=== PATIENT | male | born 1950 | race African-American/Black ===

== ENCOUNTER 2019-02-11 17:58 | Inpatient (IN) | payer MEDICARE, OTHER ==
[~2019-02-11] VITALS: Ht 185.4 cm; Wt 95.3 kg
--- NOTE | 2019-02-11 18:08 | NUR ---
PT MELA LUTHER FROM [facility] FOR GEROPSYCH ADMISSION. PER REPORT, AGITATED AND VERBALLY ABUSIVE TO STAFF. AWAITING MD CACERES.
--- NOTE | 2019-02-11 18:10 | NUR ---
DR NORTON AT BEDSIDE FOR EVAL.
--- NOTE | 2019-02-11 18:26 | NUR ---
POLYMERIZATION OVEN OPERATOR AT BEDSIDE FOR BLOOD DRAW.
[2019-02-11] MEDS ORDERED: BENA20TA78 PO (18:32)
[2019-02-11] MEDS ORDERED: QUET25TA PO (18:32)
[2019-02-11] MEDS ORDERED: FAMO20TA80 PO (18:32)
[2019-02-11] MEDS ORDERED: CARV6.25 PO (18:32)
[2019-02-11] MEDS ORDERED: AMLO5TAB4 PO (18:32)
[2019-02-11] MEDS ORDERED: LACT10SO PO (18:32)
[2019-02-11] MEDS ORDERED: ATOR10TA PO (18:32)
[2019-02-11] MEDS ORDERED: FERR325T23 PO (18:32)
[2019-02-11] MEDS ORDERED: CHOL100044 PO (18:32)
[2019-02-11] MEDS ORDERED: ASPI-1152 PO (18:32)
[2019-02-11] MEDS ORDERED: PARO10TA86 PO (18:32)
[2019-02-11] MEDS ORDERED: PERP2TAB PO ×2 (18:32)
[2019-02-11 18:49] LABS: BASOPHILS # (AUTO) 0.1 /CMM (0.0-0.2); EOSINOPHILS % (AUTO) 2.2 % (0.0-6.0); HEMATOCRIT 37 % (39-51); HEMOGLOBIN 12.2 g/dL (13.5-17.5); LYMPHOCYTES # (AUTO) 1.3 /CMM (0.8-4.8); LYMPHOCYTES % (AUTO) 38.3 % (20.0-44.0); MEAN CORPUSCULAR HGB CONC 33 g/dl (31.0-36.0); MEAN CORPUSCULAR VOLUME 92 fL (80-96); MONOCYTES # (AUTO) 0.4 /CMM (0.1-1.30); MONOCYTES % (AUTO) 10.8 % (2.0-12.0); NEUTROPHILS # (AUTO) 1.6 /CMM (1.8-8.9); NEUTROPHILS % (AUTO) 46.7 % (43.0-81.0); PLATELET COUNT (AUTO) 208 /CMM (150-450); RED BLOOD CELL COUNT(AUTO) 4.03 MIL/uL (4.5-6.0); WHITE BLOOD COUNT (AUTO) 3.5 K/uL (4.3-11.0)
[2019-02-11 19:00] LABS: CALCIUM, SERUM 9.2 mg/dL (8.5-10.1); CARBON DIOXIDE 28 mmol/L (21-32); CHLORIDE 106 mmol/L (98-107); CREATININE 1.1 mg/dL (0.6-1.3); GLUCOSE 98 mg/dL (74-106); POTASSIUM 3.5 mmol/L (3.5-5.1); SODIUM SERUM 143 mmol/L (136-145); UREA NITROGEN, BLOOD 11 mg/dL (7-18)
[2019-02-11 19:13] LABS: ACETAMINOPHEN < 10 ug/ml (10-30); ALANINE AMINOTRANSFERASE 14 U/L (12-78); ALCOHOL, BLOOD < 3 mg/dL (0-0); ALKALINE PHOSPHATASE 91 U/L (46-116); ASPARTATE AMINOTRANSFERASE 14 U/L (15-37); BILIRUBIN,DIRECT 0.1 mg/dL (0.0-0.2); BILIRUBIN,TOTAL 0.4 mg/dL (0.2-1.0); SALICYLATE 2.7 mg/dL (2.8-20.0); TOTAL PROTEIN, SERUM 7.5 g/dL (6.4-8.2)
[2019-02-11 19:25] LABS: APPEARANCE,URINE Clear (CLEAR); BILIRUBIN,URINE Negative (NEGATIVE); BLOOD, URINE Negative Ery/uL (NEGATIVE); COLOR,URINE Yellow (YELLOW); KETONES,URINE Negative (NEGATIVE); LEUKOCYTE ESTERASE ,URINE Negative (NEGATIVE); NITRITE, URINE Negative (NEGATIVE); PROTEIN,URINE Negative (NEGATIVE); UGLUCOSE Negative (NEGATIVE); UROBILINOGEN,URINE 0.2 EU/dL (0.2)
--- NOTE | 2019-02-11 19:46 | NUR ---
REPORT TO FLIGHT ENGINEER INSTRUCTOR NURSE GABBY FOR LAMAR.
--- NOTE | 2019-02-11 19:47 | NUR ---
CALLED FEMI RUELAS FOR EVAL. ETA 1 HR
--- NOTE | 2019-02-11 20:21 | NUR ---
CALLING REPORT TO FEMI HUFF .
[2019-02-11 21:14] VITALS: BP 161/63
[2019-02-11] MEDS ORDERED: MAG HYDROX/AL HYDROX/SIMETH 30 ML UDC PO PRN (21:30)
[2019-02-11] MEDS ORDERED: ACETAMINOPHEN 325 MG TABLET PO PRN (21:30)
[2019-02-11] MEDS ORDERED: MAGNESIUM HYDROXIDE 30 ML UDC PO PRN (21:30)
[2019-02-11] MEDS ORDERED: LORAZEPAM 0.5 MG TABLET PO PRN (21:30)
--- NOTE | 2019-02-11 23:17 | NUR ---
GPS/MATERIAL PLANNER ADMISSION NOTES: RECEIVED 69 YEAR OLD MALE ON A 5150 HOLD FOR DTO. PT. ADMITTED FOR REFUSING MEDICATIONS AND BEING AGGRESSIVE AND COMBATIVE WITH STAFF [facility]. PT. ORIENTED TO UNIT POLICY, PROTOCOLS, PROCEDURES, AND ROUTINES. BELONGINGS AND CONTRABAND LOGGED AND LOCKED IN CABINET. CALL GUDINO WITHIN REACH AND SAFETY ENVIRONMENT OBSERVED AT ALL TIMES. MEDICAL AND PSYCH MADE AWARE OF PT. ADMISSION TO UNIT.
[2019-02-12 07:22] LABS: BASOPHILS % (AUTO) 0.7 % (0.0-2.0); EOSINOPHILS % (AUTO) 3.8 % (0.0-6.0); HEMATOCRIT 35 % (39-51); HEMOGLOBIN 11.6 g/dL (13.5-17.5); LYMPHOCYTES # (AUTO) 1.1 /CMM (0.8-4.8); LYMPHOCYTES % (AUTO) 41.1 % (20.0-44.0); MEAN CORPUSCULAR HGB CONC 33 g/dl (31.0-36.0); MEAN CORPUSCULAR VOLUME 90 fL (80-96); MONOCYTES # (AUTO) 0.3 /CMM (0.1-1.30); MONOCYTES % (AUTO) 11.4 % (2.0-12.0); NEUTROPHILS # (AUTO) 1.1 /CMM (1.8-8.9); PLATELET COUNT (AUTO) 182 /CMM (150-450); RED BLOOD CELL COUNT(AUTO) 3.89 MIL/uL (4.5-6.0); WHITE BLOOD COUNT (AUTO) 2.6 K/uL (4.3-11.0)
[2019-02-12 07:37] LABS: ALBUMIN 3.4 g/dL (3.4-5.0); BILIRUBIN,TOTAL 0.3 mg/dL (0.2-1.0); CALCIUM, SERUM 8.6 mg/dL (8.5-10.1); CREATININE 1.1 mg/dL (0.6-1.3); POTASSIUM 3.7 mmol/L (3.5-5.1); TOTAL PROTEIN, SERUM 6.6 g/dL (6.4-8.2)
[2019-02-12 07:44] LABS: CHOLESTEROL 211 mg/dL (<200); HDL CHOLESTEROL 48 mg/dL (40-60); LDL 136 mg/dL (0-99); TRIGLYCERIDES 92 mg/dL (30-150)
[2019-02-12 08:00] VITALS: BP 130/63
[2019-02-12] MEDS: FERROUS SULFATE (325 MG) 325 MG/TAB TABLET PO SCH ×2 (11:06→17:28)
[2019-02-12] MEDS: CHOLECALCIFEROL 1,000 UNIT TABLET (VIT D3) PO SCH (11:06)
[2019-02-12] MEDS: FAMOTIDINE (20 MG) 20 MG TABLET PO SCH ×2 (11:06→17:28)
[2019-02-12] MEDS: DIVALPROEX SODIUM 250 MG TABLET.DR PO SCH ×2 (11:07→20:37)
[2019-02-12] MEDS: ASPIRIN EC 81 MG TABLET.DR PO SCH (11:07)
[2019-02-12] MEDS: AMLODIPINE BESYLATE 5 MG TABLET PO SCH (11:07)
[2019-02-12] MEDS: ATORVASTATIN 10 MG TABLET PO SCH (11:07)
[2019-02-12] MEDS: BENAZEPRIL HCL 20 MG TABLET PO SCH (11:08)
[2019-02-12] MEDS: LACTULOSE 10 G/15 ML UDC (PYXIS) PO SCH (11:12)
--- NOTE | 2019-02-12 11:50 | NUR ---
ROBERTO called [facility] ([phone]) and spoke to Lo. ROBERTO confirmed that the pt can return to their facility and discussed the pts treatment plan and initial discharge plan with her.
--- NOTE | 2019-02-12 12:40 | NUR ---
Initial Discharge Plan: Pt currently resides at [facility] located at [address] [place] [address]; ([phone]). Per pt, he would like to return and the SW confirmed with the facility that he is able to. SW will work with the pt and the MD regarding appropriate discharge planning. SW will form a safe and proper discharge.
--- NOTE | 2019-02-12 15:08 | NUR ---
Group Note: SW asked the pt to participate in group therapy but he was responding to internal stimuli and appeared to be agitated.
[2019-02-12 16:00] VITALS: BP 156/83
--- NOTE | 2019-02-12 18:23 | NUR ---
GPS/RN NO BM DURING THE SHIFT WILL ENDORSE TO COFOUNDER TO COLLECT STOOL FOR OCCULT BLOOD
[2019-02-12 20:00] VITALS: BP 163/90
[2019-02-12] MEDS: ZOLPIDEM TARTRATE 5 MG TABLET PO PRN (21:03)
[2019-02-12] MEDS: QUETIAPINE FUMARATE 25 MG TABLET PO SCH (21:03)
[2019-02-13 07:31] LABS: IRON, SERUM 91 ug/dl (50-175); TOTAL IRON BINDING CAPACITY 313 ug/dl (250-450)
[2019-02-13 08:00] VITALS: BP 151/78
[2019-02-13] MEDS: FERROUS SULFATE (325 MG) 325 MG/TAB TABLET PO SCH ×2 (08:44→17:46)
[2019-02-13] MEDS: ASPIRIN EC 81 MG TABLET.DR PO SCH (08:44)
[2019-02-13] MEDS: DIVALPROEX SODIUM 250 MG TABLET.DR PO SCH ×2 (08:44→21:21)
[2019-02-13] MEDS: CHOLECALCIFEROL 1,000 UNIT TABLET (VIT D3) PO SCH (08:44)
[2019-02-13] MEDS: BENAZEPRIL HCL 20 MG TABLET PO SCH (08:44)
[2019-02-13] MEDS: ATORVASTATIN 10 MG TABLET PO SCH (08:44)
[2019-02-13] MEDS: AMLODIPINE BESYLATE 5 MG TABLET PO SCH (08:44)
[2019-02-13] MEDS: FAMOTIDINE (20 MG) 20 MG TABLET PO SCH ×2 (08:44→17:46)
[2019-02-13] MEDS: PAROXETINE HCL 20 MG TABLET PO SCH (08:45)
[2019-02-13] MEDS: LACTULOSE 10 G/15 ML UDC (PYXIS) PO SCH (08:46)
[2019-02-13 16:00] VITALS: BP 129/76
[2019-02-13] MEDS: CYANOCOBALAMIN 1,000 MCG/ML VIAL IM SCH (17:47)
--- NOTE | 2019-02-13 19:42 | NUR ---
GPS/RN OPENING NOTES RECEIVED PATIENT IN BED, RESTING COMFORTABLY IN BED, ABLE TO VERBALIZE NEEDS, WILL CONTINUE TO MONITOR FOR ANY CHANGES, WILL MONITOR.
[2019-02-13 20:00] VITALS: BP 131/75
[2019-02-13 20:38] VITALS: BP 131/75
[2019-02-13] MEDS: QUETIAPINE FUMARATE 25 MG TABLET PO SCH (21:21)
[2019-02-14 08:00] VITALS: BP 145/84
[2019-02-14] MEDS: ATORVASTATIN 10 MG TABLET PO SCH (08:38)
[2019-02-14] MEDS: BENAZEPRIL HCL 20 MG TABLET PO SCH (08:39)
[2019-02-14] MEDS: CHOLECALCIFEROL 1,000 UNIT TABLET (VIT D3) PO SCH (08:40)
[2019-02-14] MEDS: PAROXETINE HCL 20 MG TABLET PO SCH (08:40)
[2019-02-14] MEDS: DIVALPROEX SODIUM 250 MG TABLET.DR PO SCH ×3 (08:40→17:20)
[2019-02-14] MEDS: MULTIVITAMINS,THERAGRAN 1 UDTAB TABLET PO SCH (08:41)
[2019-02-14] MEDS: ASPIRIN EC 81 MG TABLET.DR PO SCH (08:41)
[2019-02-14] MEDS: FAMOTIDINE (20 MG) 20 MG TABLET PO SCH ×2 (08:41→17:19)
[2019-02-14] MEDS: FERROUS SULFATE (325 MG) 325 MG/TAB TABLET PO SCH ×2 (08:42→17:20)
[2019-02-14] MEDS: AMLODIPINE BESYLATE 5 MG TABLET PO SCH (08:42)
[2019-02-14] MEDS: LACTULOSE 10 G/15 ML UDC (PYXIS) PO SCH (08:46)
[2019-02-14] MEDS: CYANOCOBALAMIN 1,000 MCG/ML VIAL IM SCH (08:49)
[2019-02-14 16:00] VITALS: BP 130/61
[2019-02-14] MEDS: CYANOCOBALAMIN 500 MCG TABLET PO SCH (17:20)
[2019-02-14 20:01] VITALS: BP 148/76
[2019-02-14] MEDS: QUETIAPINE FUMARATE 25 MG TABLET PO SCH (21:27)
[2019-02-14] MEDS: ZOLPIDEM TARTRATE 5 MG TABLET PO PRN (21:27)
[2019-02-15 08:00] VITALS: BP 136/68
[2019-02-15] MEDS: ATORVASTATIN 10 MG TABLET PO SCH (08:36)
[2019-02-15] MEDS: FAMOTIDINE (20 MG) 20 MG TABLET PO SCH ×2 (08:37→17:42)
[2019-02-15] MEDS: CYANOCOBALAMIN 500 MCG TABLET PO SCH (08:37)
[2019-02-15] MEDS: CHOLECALCIFEROL 1,000 UNIT TABLET (VIT D3) PO SCH (08:37)
[2019-02-15] MEDS: ASPIRIN EC 81 MG TABLET.DR PO SCH (08:37)
[2019-02-15] MEDS: DIVALPROEX SODIUM 250 MG TABLET.DR PO SCH ×3 (08:38→17:42)
[2019-02-15] MEDS: BENAZEPRIL HCL 20 MG TABLET PO SCH (08:38)
[2019-02-15] MEDS: LACTULOSE 10 G/15 ML UDC (PYXIS) PO SCH (08:38)
[2019-02-15] MEDS: PAROXETINE HCL 20 MG TABLET PO SCH (08:38)
[2019-02-15] MEDS: FERROUS SULFATE (325 MG) 325 MG/TAB TABLET PO SCH ×2 (08:38→17:42)
[2019-02-15] MEDS: AMLODIPINE BESYLATE 5 MG TABLET PO SCH (08:38)
[2019-02-15] MEDS: MULTIVITAMINS,THERAGRAN 1 UDTAB TABLET PO SCH (08:38)
[2019-02-15 16:00] VITALS: BP 118/57
[2019-02-15 20:00] VITALS: BP 146/69
[2019-02-15 20:19] VITALS: BP 146/69
[2019-02-15] MEDS: QUETIAPINE FUMARATE 25 MG TABLET PO SCH (22:14)
[2019-02-16] MEDS: LACTULOSE 10 G/15 ML UDC (PYXIS) PO SCH (08:42)
[2019-02-16] MEDS: FAMOTIDINE (20 MG) 20 MG TABLET PO SCH ×2 (08:42→16:22)
[2019-02-16] MEDS: CYANOCOBALAMIN 500 MCG TABLET PO SCH (08:42)
[2019-02-16] MEDS: PAROXETINE HCL 20 MG TABLET PO SCH (08:42)
[2019-02-16] MEDS: ATORVASTATIN 10 MG TABLET PO SCH (08:43)
[2019-02-16] MEDS: FERROUS SULFATE (325 MG) 325 MG/TAB TABLET PO SCH ×2 (08:43→16:22)
[2019-02-16] MEDS: ASPIRIN EC 81 MG TABLET.DR PO SCH (08:43)
[2019-02-16] MEDS: MULTIVITAMINS,THERAGRAN 1 UDTAB TABLET PO SCH (08:43)
[2019-02-16] MEDS: DIVALPROEX SODIUM 250 MG TABLET.DR PO SCH ×3 (08:43→16:22)
[2019-02-16] MEDS: CHOLECALCIFEROL 1,000 UNIT TABLET (VIT D3) PO SCH (08:43)
[2019-02-16] MEDS: BENAZEPRIL HCL 20 MG TABLET PO SCH (08:43)
[2019-02-16] MEDS: AMLODIPINE BESYLATE 5 MG TABLET PO SCH (08:44)
[2019-02-16 08:49] VITALS: BP 126/62
--- NOTE | 2019-02-16 14:11 | NUR ---
Group Note: Pt was encouraged to participate in group therapy but he stated that he did not want to attend because he does not need it.
--- NOTE | 2019-02-16 15:43 | NUR ---
ROBERTO called [facility] ([phone]) and spoke to Lo. ROBERTO stated that the pt is being discharged tomorrow and she stated that a ride cannot be arranged. ROBERTO stated that the hospital would provide a taxi.
[2019-02-16 16:17] VITALS: BP 118/93
[2019-02-16 19:47] VITALS: BP 137/70
[2019-02-16 20:00] VITALS: BP 137/70
[2019-02-16] MEDS: QUETIAPINE FUMARATE 25 MG TABLET PO SCH (20:36)
[2019-02-17 08:00] VITALS: BP 101/60
[2019-02-17] MEDS: CHOLECALCIFEROL 1,000 UNIT TABLET (VIT D3) PO SCH (08:32)
[2019-02-17] MEDS: LACTULOSE 10 G/15 ML UDC (PYXIS) PO SCH (08:32)
[2019-02-17] MEDS: ASPIRIN EC 81 MG TABLET.DR PO SCH (08:32)
[2019-02-17] MEDS: MULTIVITAMINS,THERAGRAN 1 UDTAB TABLET PO SCH (08:33)
[2019-02-17] MEDS: FAMOTIDINE (20 MG) 20 MG TABLET PO SCH (08:33)
[2019-02-17] MEDS: AMLODIPINE BESYLATE 5 MG TABLET PO SCH (08:34)
[2019-02-17 08:37] VITALS: BP 101/60
[2019-02-17] MEDS: BENAZEPRIL HCL 20 MG TABLET PO SCH (08:37)
[2019-02-17] MEDS: PAROXETINE HCL 20 MG TABLET PO SCH (08:37)
[2019-02-17] MEDS: FERROUS SULFATE (325 MG) 325 MG/TAB TABLET PO SCH (08:38)
[2019-02-17] MEDS: DIVALPROEX SODIUM 250 MG TABLET.DR PO SCH (08:38)
[2019-02-17] MEDS: ATORVASTATIN 10 MG TABLET PO SCH (08:39)
[2019-02-17] MEDS: CYANOCOBALAMIN 500 MCG TABLET PO SCH (08:39)
--- NOTE | 2019-02-17 11:58 | NUR ---
FEMI ESPINOZA NOTE: PATIENT IS A 69 YEAR OLD MALE DISCHARGED TO [facility] LOCATED AT [address] [place] [id number] . PATIENT IS IN STABLE CONDITION, VSS. SKIN CLEAR. CALM AND COOPERATIVE WITH MEDICATION MANAGEMENT AND PLAN OF CARE. NO ACUTE DISTRESS NOTED. NO COMPLAINTS. NO SIGNS OF AGGRESSION OR AGITATION. DENIES SI/HI, AUDITORY OR VISUAL HALLUCINATIONS AT THE TIME OF DISCHARGE. BEHAVIOR HAS IMPROVED, PSYCHIATRIC TREATMENT PLANS MET, MEDICAL TREATMENT PLANS DEFERRED FOR CONTINUAL MONITORING. EDUCATED PATIENT ABOUT EXIT CARE AND COPY PROVIDED. RETURNED PERSONAL BELONGINGS TO PATIENT. MEDICATIONS RECONCILED WITH DR. MATOS AND DR. SANDERSON, WHICH ARE BOTH AWARE OF THE PATIENT'S DISCHARGE WITH ORDERS TO FOLLOW UP WITH PSYCHIATRIST ()DR. ALEXANDRA) AND SHIPPING AGENT (DR. SANDERSON). PATIENT SIGNED CONSENTS. TAXI ARRIVED TO EXPERIENCE DESIGN DIRECTOR PATIENT, HERB COUNSELOR ESCORTED AMBULATORY PATIENT DOWNSTAIRS AT 12:00.
--- NOTE | 2019-02-17 13:23 | NUR ---
Discharge Note: Pt was discharged to [facility] located at [address] [place] [id number]; ([phone]). Pt was transported via taxi around 12pm. ROBERTO had contacted Lo from the facility regarding the discharge and she was made aware. Upon discharge, the pt appeared to be in a euthymic mood and presented with a calm affect. Pt denied both suicidal and homicidal ideation as well as auditory and visual hallucinations. Pt will be under the care of his psychiatrist, Dr. Esteves, located at [address] [place] [id number]; ; and a fax of records was sent to: [phone] and his manager intel, Dr. Mitchell, located at [address] [place] [phone]; .
== END 2019-02-17 12:00 | DRG 885 ==
LOC: ER 18:08 → GPS 20:54
PROVIDERS: ADMIT Psychiatry & Neurology Psychiatry; ATTEND Internal Medicine
DX: F31.64 Bipolar disorder, current episode mixed, severe, with psychotic features (principal); F41.9 Anxiety disorder, unspecified; D64.9 Anemia, unspecified; I10 Essential (primary) hypertension; E78.5 Hyperlipidemia, unspecified; K59.00 Constipation, unspecified; E53.8 Deficiency of other specified B group vitamins; D72.819 Decreased white blood cell count, unspecified; F17.210 Nicotine dependence, cigarettes, uncomplicated; F29 Unspecified psychosis not due to a substance or known physiological condition
CPT/HCPCS: 36415; 71045-TC; 80048-TC; 80053-TC; 80061-TC; 80076-TC; 80305; 81000-TC; 83540-TC; 85025-TC; 85045-TC; 87081-TC; G0480; J3420